=== PATIENT | female | born 1980 | race African-American/Black ===

== ENCOUNTER 2017-08-30 14:42 | Emergency (ER) | payer MEDICARE | END 2017-08-30 15:20 | disposition home or self-care (01) | LOC: ER 14:42 | DX: K02.9 Dental caries, unspecified (principal); K08.89 Other specified disorders of teeth and supporting structures; E11.9 Type 2 diabetes mellitus without complications; I10 Essential (primary) hypertension; F12.10 Cannabis abuse, uncomplicated; Z88.0 Allergy status to penicillin | CPT/HCPCS: 99283 ==